=== PATIENT | male | born 1995 | race Caucasian/White ===

== ENCOUNTER → 2016-06-13 | Outpatient (CLI) | payer MEDICAID ==
[~2016-06-13] MED LIST: ALBUTEROL2 PUFFS/17 IN; AMOXIL500 MG PO; MOTRIN600 MG PO; NAPROSYN500 M1 PO; NOMEDS *; ROBAXIN-750750 MG PO; SEPTRA DS 800 M1 TAB PO; TYLENOL WITH CO1 TA1 PO; ULTRACET 325 MG1 TAB PO
[2016-06-13 11:12] LABS: LYMPH # 1.7 K/mm3 (0.7-4.5); LYMPH % 27.9 % (10-50)
[2016-06-13 11:35] LABS: BUN 16 mg/dL (7-18)
[2016-06-13 11:38] LABS: GFR (ESTIMATED) 123 ML/MIN (>60)
--- NOTE | 2016-06-13 14:02 | RADIOLOGY REPORT PS360 ---
US RUQ-(ABD LTD)1ORGAN/QUAD/FU HISTORY: Right upper quadrant pain with nausea ABDOMINAL PAIN ORDERING PHYSICIAN: Judith Charles APRN PATIENT AGE: 21 years COMPARISON: None FINDINGS: PANCREAS: Unremarkable. No obvious mass or abnormal fluid collection. No ductal dilatation LIVER: No focal liver lesions demonstrated. Homogeneous echogenicity. No intrahepatic biliary ductal dilatation evident RIGHT KIDNEY: Unremarkable. Normal size and echogenicity. No hydronephrosis GALLBLADDER: No gallstones, gallbladder wall thickening, pericholecystic fluid, or biliary dilatation. IMPRESSION: Negative gallbladder/right upper quadrant ultrasound
== END ==
LOC: RAD 09:24 → LAB 09:24 → RAD 09:30
PROVIDERS: Nurse Practitioner Family
DX: R10.11 Right upper quadrant pain (principal); Z00.00 Encounter for general adult medical examination without abnormal findings; Z68.35 Body mass index [BMI] 35.0-35.9, adult